=== PATIENT | male | born 1965 | race African-American/Black ===

== ENCOUNTER 2016-12-07 09:38 | Inpatient (IN) | payer BC, OTHER ==
[2016-11-29 12:12] VITALS: BMI 40.7
--- NOTE | 2016-12-07 07:55 | HP ---
Admitting History and Physical - Admission Chief Complaint: Right hip osteoarthritis x years History of Present Illness: 51 year old male presents in regard to his right hip. Longstanding history of right hip osteoarthritis. Patient complains of pain, limited ROM, difficulty ambulating and difficulty completing ADLs. Patient has failed conservative treatment including PO medication, activity modification, injections and exercise program. At this point, patient would like to proceed with a right total hip arthroplasty. History Source: Patient - Past Medical History Musculoskeletal: Yes: Osteoarthritis - Past Surgical History Additional Past Surgical History: See written H&P - Smoking History Smoking history: Former smoker Have you smoked in the past 12 months: No If you are a former smoker, when did you quit?: 8 YEARS - Alcohol/Substance Use Hx Alcohol Use: No Home Medications - Allergies Allergies/Adverse Reactions: Allergies Allergy/AdvReac Type Severity Reaction Status Date / Time shellfish derived Allergy Severe Hives Verified 11/29/16 11:59 No Known Drug Allergies Allergy Verified 11/29/16 12:00 - Home Medications Home Medications: Ambulatory Orders Hydrocodone/Acetaminophen [Hydrocodon-Acetaminophn 10-325] 1 - 2 each PO QID PRN 11/29/16 Multivitamin with Iron [Multivitamins with Iron] 1 each PO DAILY 11/29/16 Naproxen Sodium [Aleve] 220 mg PO BID 11/29/16 Testosterone Propionate 5 gm MC DAILY 11/29/16 Review of Systems - Review of Systems Musculoskeletal: reports: Decreased ROM (right hip), Joint Pain (right hip), Joint Swelling (right hip) Physical Examination Constitutional: Yes: Well Nourished, No Distress Eyes: Yes: Conjunctiva Clear HENT: Yes: Atraumatic, Normocephalic Neck: Yes: Supple Cardiovascular: Yes: Regular Rate and Rhythm Respiratory: Yes: Regular ...Rectal Exam: Yes: Deferred Musculoskeletal: Yes: Joint Stiffness (right hip), Joint Swelling (right hip) Assessment/Plan 51 year old male presenting in regard to his right hip. Longstanding osteoarthritis with pain, limited ROM, difficulty ambulating and difficulty completing ADLs. Patient had failed all conservative treatment measures. Proceed with a right total hip arthroplasty.
[2016-12-07] MEDS ORDERED: TRANEXAMIC ACID 1000 MG/10 ML VIAL IVPUSH ONE (10:28)
[2016-12-07] MEDS ORDERED: ROPIVICAINE 0.2%/MORPH PF/KETOROLAC - 51ML DISP.SYRINGE IA ONE ×2 (10:28→12:58)
[2016-12-07] MEDS ORDERED: CELECOXIB 200 MG CAPSULE PO ONE (10:28)
[2016-12-07] MEDS ORDERED: CEFAZOLIN 2 GM in DEXTROSE 5%-WATER - 50 ML IVPB ONE (10:28)
[2016-12-07] MEDS ORDERED: GABAPENTIN 300 MG CAPSULE (FP) PO ONE (10:28)
[2016-12-07] MEDS ORDERED: oxyCODONE HCL 10 MG SUSTAINED ACTING TABLET PO ONE (10:28)
[2016-12-07] MEDS ORDERED: PANTOPRAZOLE 40 MG TABLET (FP) ONE (10:37)
[2016-12-07] MEDS ORDERED: MIDAZOLAM HCL 2 MG/2 ML SINGLE DOSE VIAL ONE ×2 (11:45→16:39)
[2016-12-07] MEDS ORDERED: DEXAMETHASONE SOD PHOSPHATE/PF 10 MG/ML SDV ONE (11:45)
[2016-12-07] MEDS ORDERED: LIDOCAINE 1% P/F 10 MG/ML VIAL ONE (11:46)
[2016-12-07] MEDS ORDERED: BUPIVACAINE HCL/PF (5 MG/ML) 30 ML VIAL IJ ONE (11:46)
[2016-12-07] MEDS ORDERED: PANTOPRAZOLE 40 MG TABLET (FP) PO ONE (12:00)
[2016-12-07] MEDS ORDERED: ONDANSETRON 4 MG/2 ML VIAL IVPUSH PRN ×2 (12:02→17:05)
[2016-12-07] MEDS ORDERED: oxyCODONE HCL 5 MG TABLET PO PRN ×2 (12:02→17:05)
[2016-12-07] MEDS ORDERED: PROMETHAZINE HCL 25 MG/1 ML VIAL IVPUSH PRN ×2 (12:02→17:05)
[2016-12-07] MEDS ORDERED: PROPOFOL 20 ML ONE ×4 (12:35)
[2016-12-07] MEDS ORDERED: ceFAZolin SODIUM 1 GM VIAL ONE (12:58)
[2016-12-07] MEDS ORDERED: VANCOMYCIN 1,000 MG VIAL (RESTRICTED TO ID ONLY) ONE (12:58)
[2016-12-07] MEDS ORDERED: TRANEXAMIC ACID 1000 MG/10 ML VIAL ONE ×3 (12:58→16:05)
[2016-12-07] MEDS ORDERED: DEXAMETHASONE SOD PHOSPHATE 4 MG/1 ML VIAL ONE ×3 (14:21→14:22)
[2016-12-07] MEDS ORDERED: ONDANSETRON 4 MG/2 ML VIAL IVPB PRN (17:02)
[2016-12-07] MEDS ORDERED: MAG HYDROX/AL HYDROX/SIMETH 30 ML UNIT-DOSE CUP PO PRN (17:02)
[2016-12-07] MEDS ORDERED: MAGNESIUM HYDROX 2400MG/30ML ORAL SUSPENSION 30 ML CUP PO PRN (17:02)
--- NOTE | 2016-12-07 17:02 | OP ---
Operative Note - Note: Operative Date: 12/07/16 Pre-Operative Diagnosis: right hip OA Operation: right BARB Post-Operative Diagnosis: Same as Pre-op Surgeon: Lenin eRbollar Watch Engine Operator: Marlena Mensah Anesthesia: Spinal Estimated Blood Loss (mls): 200
[2016-12-07] MEDS ORDERED: LACTATED RINGERS SOLUTION 1,000 ML IV SCH (17:15)
[2016-12-07] MEDS: traMADol HCL 50 MG TABLET PO SCH ×3 (17:25→23:00)
[2016-12-07] MEDS: ACETAMINOPHEN 1000 MG/100 ML VIAL (NON FORMULARY) IVPB ONE ×2 (17:25→18:54)
[2016-12-07] MEDS: KETOROLAC TROMETHAMINE 30 MG/1 ML VIAL IVPUSH SCH ×3 (17:25→23:00)
[2016-12-07] MEDS ORDERED: CEFAZOLIN 2 GM in DEXTROSE 5%-WATER - 50 ML IVPB SCH (18:00)
[2016-12-07] MEDS: ACETAMINOPHEN 325 MG TABLET (FP) PO SCH ×2 (18:54→23:00)
[2016-12-07] MEDS: oxyCODONE HCL 5 MG TABLET PO PRN (20:05)
[2016-12-07] MEDS: SENNOSIDES/DOCUSATE COMBO (SENNA PLUS) TABLET (UD) PO SCH (21:24)
[2016-12-07] MEDS: GABAPENTIN 300 MG CAPSULE (FP) PO SCH (21:24)
[2016-12-07] MEDS: CELECOXIB 200 MG CAPSULE PO SCH (21:24)
[2016-12-07] MEDS: oxyCODONE HCL 10 MG SUSTAINED ACTING TABLET PO SCH (21:24)
[2016-12-07] MEDS: ASCORBIC ACID 500 MG TABLET (FP) PO SCH (21:24)
[2016-12-07] MEDS: CEFAZOLIN 2 GM/D5W 50 ML IVPB SCH (21:25)
[2016-12-07 22:08] LABS: HIV 1 & 2 AB NEGATIVE; HIV 1 AGp24 NEGATIVE
[2016-12-08] MEDS ORDERED: DEXAMETHASONE SOD PHOSPHATE 10 MG/1 ML VIAL IVPB ONE (02:00)
[2016-12-08] MEDS: KETOROLAC TROMETHAMINE 30 MG/1 ML VIAL IVPUSH SCH ×2 (05:25→11:30)
[2016-12-08] MEDS: traMADol HCL 50 MG TABLET PO SCH ×4 (05:26→23:15)
[2016-12-08] MEDS: ACETAMINOPHEN 325 MG TABLET (FP) PO SCH ×4 (05:26→23:00)
[2016-12-08] MEDS: CEFAZOLIN 2 GM/D5W 50 ML IVPB SCH (05:27)
[2016-12-08] MEDS ORDERED: DEXAMETHASONE SOD PHOSPHATE 10 MG/1 ML VIAL ONE (05:37)
[2016-12-08 07:34] LABS: MCH 29.7 pg (25.7-33.7); MCHC 33.7 g/dl (32.0-35.9); MEAN CELL VOLUME 88.2 fl (80-96); MEAN PLT VOLUME 8.8 fl (7.5-11.1); PLATELET COUNT 247 K/MM3 (134-434); RDW 13.2 % (11.9-15.9); WHITE BLOOD COUNT 14.1 K/mm3 (4.0-10.8)
[2016-12-08 07:48] LABS: ANION GAP 6 (8-16); CO2 26 mmol/L (22-28); GLUCOSE,RANDOM 201 mg/dl (74-106)
[2016-12-08] MEDS: ASPIRIN 325 MG TABLET PO SCH (08:07)
[2016-12-08] MEDS: ASCORBIC ACID 500 MG TABLET (FP) PO SCH ×2 (09:23→21:33)
[2016-12-08] MEDS: PANTOPRAZOLE 40 MG TABLET (FP) PO SCH (09:23)
[2016-12-08] MEDS: GABAPENTIN 300 MG CAPSULE (FP) PO SCH ×2 (09:24→21:33)
[2016-12-08] MEDS: MULTIVITAMINS (DAILY MVI) TABLET (FP) PO SCH (09:24)
[2016-12-08] MEDS: SENNOSIDES/DOCUSATE COMBO (SENNA PLUS) TABLET (UD) PO SCH ×2 (09:24→21:33)
[2016-12-08] MEDS: oxyCODONE HCL 10 MG SUSTAINED ACTING TABLET PO SCH ×2 (09:24→21:32)
[2016-12-08] MEDS: CELECOXIB 200 MG CAPSULE PO SCH ×2 (09:24→21:32)
[2016-12-08] MEDS: oxyCODONE HCL 5 MG TABLET PO PRN ×2 (09:25→21:32)
--- NOTE | 2016-12-08 10:40 | PN ---
Progress Note (short form) - Note Progress Note: S: Pt. resting in bed. no complaints O: VAS 3/10 A/P: pod#1 s/p right thr 1. continue pain meds as ordered 2. no apparent complications
--- NOTE | 2016-12-08 17:54 | PN ---
Progress Note (short form) - Note Progress Note: Pt seen and examined this morning. Doing well. AVSS Selected Entries 12/08/16 14:08 Temperature 98.1 F Pulse Rate 81 Respiratory 18 Rate Blood Pressure 138/70 O2 Sat by Pulse 100 Oximetry (%) Laboratory Tests 12/08/16 12/08/16 07:00 07:00 WBC 14.1 H Hgb 13.6 Hct 40.5 Plt Count 247 Sodium 136 Potassium 4.5 Chloride 104 Carbon Dioxide 26 Anion Gap 6 L BUN 18 Creatinine 1.0 Random Glucose 201 H Calcium 9.0 Gen: NAD RLE: c/d/i, NVID A/P s/p R Spencer 1. Doing very well. 2. Plan for d/c home tomorrow afternoon.
--- NOTE | 2016-12-08 18:41 | DS ---
Physical Examination Vital Signs: Vital Signs Temperature 98.1 F 12/08/16 14:08 Pulse Rate 81 12/08/16 14:08 Respiratory Rate 18 12/08/16 14:08 Blood Pressure 138/70 12/08/16 14:08 O2 Sat by Pulse Oximetry (%) 100 12/08/16 14:08 Labs: CBC, BMP 12/08/16 07:00 12/08/16 07:00 Discharge Summary Reason For Visit: RIGHT HIP OSTEOARTHRITIS Current Active Problems Osteoarthritis of right hip (Acute) Procedures: Principal: right jaclyn Hospital Course: Admitted for elective surgery. Procedure performed without complications. Pt received postoperative antibiotic prophylaxis and DVT ppx. Ambulated with physical therapy. Stable for discharge home with outpatient followup. Condition: Stable - Instructions Diet, Activity, Other Instructions: Dr Rebollar - Hip Replacement Instructions Keep the Aquacel dressing on until removed by Dr. Rebollar in 10-14 days - it is antibacterial and waterproof and you can shower with it on. Call the office for a follow-up appointment with Dr. Rebollar in 10-14 days. [phone] Take one Aspirin 325mg daily for 6 weeks to prevent blood clots in your legs. Take one Pantoprazole 40mg daily for 6 weeks to protect against heartburn and ulcers. Take Celebrex 200mg twice daily for 30 days to reduce swelling and inflammation. Take a multivitamin, additional vitamin C supplement, and stool softener daily. For pain: *Mild pain (1-3/10): Take 1 Tramadol tablet every 4 hours as needed. Moderate pain (4-6/10): Take 1 Tramadol tablet and 1 Percocet tablet every 4 hours as needed. Severe pain (7-10/10): Take 1 Tramadol tablet and 2 Percocet tablets every 4 hours as needed. Activity: You can put as much weight on the operative leg as you want. For the first 6 weeks, all you need to do is walk around the house, go up/down stairs, and sit down/get up. After 6 weeks when everything is healed (and bone has grown into the implant) you will be sent for more intensive outpatient physical therapy. Always use a walker or cane for balance and to prevent falls. Disposition: VNS/HOME HEALTH CARE - Home Medications Comprehensive Discharge Medication List: Ambulatory Orders Multivitamin with Iron [Multivitamins with Iron] 1 each PO DAILY 11/29/16 Testosterone Propionate 5 gm MC DAILY 11/29/16 Tadalafil [Cialis] 5 mg PO PRN PRN 12/07/16 Ascorbic Acid [Vitamin C -] 500 mg PO BID tablet 12/08/16 Aspirin [ASA -] 325 mg PO DAILY@0800 tablet 12/08/16 Celecoxib [CeleBREX -] 200 mg PO BID #60 tab 12/08/16 Multivitamins [Multivit ([facility] Formulary)] 1 tab PO DAILY tab 12/08/16 Oxycodone HCl/Acetaminophen [Percocet 5-325 mg Tablet] 1 - 2 tab PO Q4H PRN #60 tablet MDD 8 12/08/16 Pantoprazole Sodium [Protonix -] 40 mg PO DAILY #40 tab 12/08/16 Sennosides/Docusate Sodium [Pericolace -] 2 tablet PO BID tablet 12/08/16 Tramadol HCl [Ultram -] 50 mg PO Q4H PRN #90 tablet MDD 6 12/08/16
[2016-12-09] MEDS: ACETAMINOPHEN 325 MG TABLET (FP) PO SCH ×2 (06:29→11:16)
[2016-12-09] MEDS: traMADol HCL 50 MG TABLET PO SCH ×2 (06:30→11:16)
[2016-12-09 07:00] VITALS: BP 128/68; PULSE 86; TEMP 98.5
[2016-12-09 07:52] LABS: MCH 30.6 pg (25.7-33.7); MCHC 34.1 g/dl (32.0-35.9); MEAN PLT VOLUME 9.1 fl (7.5-11.1); PLATELET COUNT 212 K/MM3 (134-434); RDW 13.7 % (11.9-15.9); WHITE BLOOD COUNT 14.8 K/mm3 (4.0-10.8)
[2016-12-09 08:06] LABS: ANION GAP 5 (8-16); CALCIUM 8.9 mg/dl (8.4-10.2); CO2 29 mmol/L (22-28); GLUCOSE,RANDOM 113 mg/dl (74-106)
[2016-12-09] MEDS: ASPIRIN 325 MG TABLET PO SCH (08:25)
[2016-12-09] MEDS: oxyCODONE HCL 10 MG SUSTAINED ACTING TABLET PO SCH (09:26)
[2016-12-09] MEDS: oxyCODONE HCL 5 MG TABLET PO PRN (09:27)
[2016-12-09] MEDS: CELECOXIB 200 MG CAPSULE PO SCH (09:28)
[2016-12-09] MEDS: ASCORBIC ACID 500 MG TABLET (FP) PO SCH (09:28)
[2016-12-09] MEDS: SENNOSIDES/DOCUSATE COMBO (SENNA PLUS) TABLET (UD) PO SCH (09:28)
[2016-12-09] MEDS: GABAPENTIN 300 MG CAPSULE (FP) PO SCH (09:28)
[2016-12-09] MEDS: MULTIVITAMINS (DAILY MVI) TABLET (FP) PO SCH (09:28)
[2016-12-09] MEDS: PANTOPRAZOLE 40 MG TABLET (FP) PO SCH (09:29)
--- NOTE | 2016-12-12 10:39 | OP ---
DATE OF OPERATION: 12/07/2016 PREOPERATIVE DIAGNOSIS: Right hip osteoarthritis. POSTOPERATIVE DIAGNOSIS: Right hip osteoarthritis. PROCEDURE: Right total hip replacement. ATTENDING: Tristen Marino MD ACCOUNTS SPECIALIST: DONAL Christopher. ANESTHESIA: Spinal plus sedation. ESTIMATED BLOOD LOSS: 200 mL. COMPLICATIONS: None. SPECIMENS: Resected bone was sent for pathology analysis. DISPOSITION: The patient was transferred to the PACU in stable condition. IMPLANTS USED: Rocio Accolade 2 size 4 femoral components, 54-mm Tritanium acetabular component with MDM bipolar head ball with ceramic inner head. INDICATIONS: This is a 51-year-old male who presented to the office complaining of severe right hip and groin pain. He was seen and examined by Dr. Marino and diagnosed with severe right hip osteoarthritis. He had failed conservative treatment and was felt to be an appropriate candidate for right total hip replacement. The risks, benefits, and alternatives to the procedure were explained to the patient, and the patient desired to have the procedure performed. DESCRIPTION OF PROCEDURE: On the day of surgery, the patient was taken to the operating room and placed on the OR table. Spinal anesthesia was administered by the anesthesiologist. The patient was then positioned in the lateral decubitus position on the table and all bony prominences were padded. An axillary roll was placed. The right hip was then prepped and draped in the usual sterile fashion and intravenous antibiotics were given for infection prophylaxis. A surgical time-out was then performed with the team, and the patients identity, procedure, side, availability of implants, and the administration of antibiotics was confirmed. An approximately 15cm longitudinal incision was made through the skin centered on the greater trochanter of the hip. This dissection was carried down through the subcutaneous tissue to the deep fascia. This fascia was then incised and a cobra was placed around the inferior femoral neck. Electrocautery was used to reflect the anterior 40% of the gluteus medius and minimus starting at the musculotendinous junction and leaving a cuff for closure. This was reflected to reveal the capsule of the hip joint. An anterior capsulectomy was performed and the femoral head and neck were visualized. Grade 4 changes were noted diffusely throughout the joint. At this point, the hip was then dislocated with traction and external rotation, and an oscillating saw was used to make the femoral neck cut at the level previously templated, and the femoral head was removed. Attention was then turned to the acetabulum. Retractors were placed around the acetabulum, and the labrum was removed. The acetabulum was then reamed to the preoperatively templated size using successively larger reamers. The appropriately sized cup was then impacted and had solid fixation as well approximately 40 and 20 degrees of inclination and version respectively. An MDM liner was then placed in the cup. Attention was then turned back to the femur, which was externally rotated for improved visualization. A femoral neck elevator was used to present the femoral neck cut, a box osteotome was used to enter the femoral canal, and a canal finder was used to go down the femoral shaft. The Musical Sneakers Accolade 2 broaches were then used sequentially until the optimal scratch fit was achieved. From here, several different offset head and neck configurations were tested until excellent stability and length were obtained. All trial components were then removed. The femur was copiously irrigated, and the final components were placed. Leg length and stability were checked again and found to be excellent. Irrigation was performed again. A 3-minute dilute Betadine lavage was performed according to the [place] protocol. Following this, the wound was again thoroughly irrigated with normal saline via pulsatile lavage. Wound closure was started by repairing the abductor muscles with a No. 2 FiberWire stitch in a Fenton configuration passed through bone tunnels in the greater trochanter and tied over a bony bridge. This repair was then reinforced with a No. 0 VLoc 180 barbed suture. Next, No. 0 VLoc 180 was used to close the fascia. The deep subcutaneous tissue was closed with No. 1 Vicryl sutures, and 2-0 VLoc 90 barbed suture was used for the superficial subcutaneous tissue. The skin was closed using both 3-0 VLoc 90 suture in a running subcuticular fashion and Dermabond skin adhesive. Once this was completed, a sterile Aquacel dressing was applied. The patient was then awakened and taken to the PACU in stable condition. TRISTEN MARINO M.D. [id number]
--- NOTE | 2016-12-12 16:14 | PATH ---
Surgical Pathology Report Patient Name: PINKY PALMER Med. Rec. #: [id number] /Age/Gender: 1965 (Age: 51) / M Account: [id number] Location: [facility] MED-SURG Taken: 12/07/2016 Received: 12/07/2016 Reported: 12/12/2016 Physicians: Lenin Rebollar M.D. Specimen(s) Received RIGHT FEMORAL HEAD Clinical History Right hip osteoarthritis Final Diagnosis FEMORAL HEAD, RIGHT, TOTAL HIP REPLACEMENT: DEGENERATIVE JOINT DISEASE. Electronically Signed Garima Pierre M.D. Gross Description Received in formalin, labeled "right femoral head," is a 4.8 x 4.8 x 4.1 cm. femoral head with a 0.9 cm in length portion of femoral neck attached. The margin of resection is smooth. There is a 3.8 cm greatest dimension area of eburnation present. The remaining articular surface is mishra-yellow and diffusely granular. The underlying trabecular bone is yellow and hard. A medical service representative section is submitted in one cassette, following decalcification. 12/08/2016 [facility]2016
== END 2016-12-09 11:30 | disposition home health service (06) | DRG 301 ==
LOC: FM/S 09:38
PROVIDERS: ADMIT Student in an Organized Health Care Education/Training Program; ATTEND Student in an Organized Health Care Education/Training Program
PROC: 0SR90JA Replacement of Right Hip Joint with Synthetic Substitute, Uncemented, Open Approach (ICD-10-PCS; principal; 2016-12-07 14:26)
DX: M16.11 Unilateral primary osteoarthritis, right hip (principal); Z87.891 Personal history of nicotine dependence
CPT/HCPCS: 36415; 73502-TC-RT; 80048; 85027; 87389; 88304-TC; 88311-TC; 94010; 94760; 97116-GP; 97162-GP